=== PATIENT | female | born 1960 | race Hispanic/Latino ===

== ENCOUNTER 2023-07-19 15:39 | Outpatient (CLI) | payer OTHER, SELFPAY ==
[2023-07-19 16:27] LABS: Alanine Aminotransferase 23 U/L (6-35); Aspartate Amino Transferase 28 U/L (14-36)
== END 2023-07-19 15:40 | disposition home or self-care (01) ==
LOC: ANHLAB 15:43
PROVIDERS: Visit Provider Podiatrist Foot & Ankle Surgery
DX: B35.1 Tinea unguium (principal)
CPT/HCPCS: 36415; 84450; 84460

== ENCOUNTER 2023-10-19 16:10 | Outpatient (CLI) | payer SELFPAY ==
[2023-10-19 17:04] LABS: Alanine Aminotransferase 24 U/L (6-35); Aspartate Amino Transferase 24 U/L (14-36)
== END 2023-10-19 16:11 | disposition home or self-care (01) ==
PROVIDERS: Visit Provider Podiatrist Foot & Ankle Surgery
DX: B35.1 Tinea unguium (principal)
CPT/HCPCS: 36415; 84450; 84460